=== PATIENT | male | born 1995 | race Two or more races ===

== ENCOUNTER 2023-04-03 02:05 | Emergency (ER) | payer OTHER ==
[~2023-04-03] VITALS: Ht 167.6 cm; Wt 70.0 kg
[2023-04-03] MEDS ORDERED: ALBUTEROL SULF 2.5 MG/0.5ML(0.5%) NEB SOLN NEB ONE (02:45)
[2023-04-03] MEDS ORDERED: DexAMETHasone INJECTION 10 MG in D5W 5% 50 ML IV ONE (02:45)
[2023-04-03] MEDS ORDERED: IPRATROPIUM BROM 0.5 MG/2.5ML INH SOL NEB ONE (02:45)
[2023-04-03 03:13] LABS: Hematocrit 44.4 % (41.0-53.0); Hemoglobin 14.9 g/dL (13.5-17.5); Mean Corpuscular Hemoglobin 29.5 pg (28.0-32.0); Mean Corpuscular Hgb Conc. 33.5 g/dL (32.0-36.0); Mean Corpuscular Volume 88.3 fL (80.0-100.0); Red Blood Cells 5.03 10^6/uL (4.5-5.90); Red Cell Distribution Width 13.2 % (11.8-14.3); White Blood Cell 9.1 10^3/uL (4.4-10.8)
[2023-04-03] MEDS ORDERED: DexAMETHasone SOD PHOS 10MG/1ML VIAL INJ ONE (03:15)
[2023-04-03 03:22] LABS: Alanine Aminotransferase 18 U/L (7-40); Albumin 4.6 g/dL (3.2-4.8); Alkaline Phosphatase 90 U/L (46-116); Anion Gap 5 (5-15); Aspartate Aminotransferase 48 U/L (13-40); BUN/Creatinine Ratio 11.2 (10.0-20.0); Bilirubin, Total 1.1 mg/dL (0.2-1.0); Blood Urea Nitrogen 10 mg/dL (9-23); Calcium 9.3 mg/dL (8.7-10.4); Carbon Dioxide 29 mmol/L (20-30); Chloride 105 mmol/L (98-107); Potassium 3.4 mmol/L (3.5-5.1); Sodium 139 mmol/L (136-145); Total Protein 7.4 g/dL (5.7-8.2)
[2023-04-03 03:30] LABS: Basophils % (manual) 0 (0.0-2.0); Blast Cells 0; Metamyelocytes % 0; Promyelocytes % 0; Reactive Lymphocytes 0
[2023-04-03 04:30] LABS: Glucose 84 mg/dL (74-106)
[2023-04-03] MEDS ORDERED: ALBU108A5 IN (05:25)
[2023-04-03] MEDS ORDERED: DEX4T PO (05:26)
[2023-04-03] MEDS ORDERED: AZIT-81 PO (05:27)
[2023-04-03 05:50] VITALS: BP 127/81; PULSE 88; RESP 13; TEMP 98.6; O2SAT 98
[2023-04-03 06:03] LABS: Band Neutrophils % (manual) 3; Eosinophils % (manual) 24 (0-7); Lymphocytes % (manual) 25 (10.0-50.0); Monocytes % (manual) 5 (0-12); Myelocytes % 1; Platelet Estimate Adequate; RBC Morphology Normal
== END 2023-04-03 05:59 | disposition home or self-care (01) ==
LOC: EDBD 02:05 → ER 02:05
DX: J98.01 Acute bronchospasm (principal)
CPT/HCPCS: 36415; 71046; 80053; 83605; 83880; 84484; 85007; 85027; 85379; 87040; 94640; 96374; 99284; J1100; J7060; J7644

== ENCOUNTER 2023-04-09 17:02 | Emergency (ER) | payer OTHER ==
[~2023-04-09] VITALS: Ht 162.6 cm; Wt 70.0 kg
[~2023-04-09 17:02] MED LIST: ALBU108A5 IN; AZIT-81 PO; DEX4T PO
[2023-04-09 18:53] LABS: Basophils # (auto) 0.1 10 ^3/uL (0-0.2); Nucleated Red Blood Cells % 0.1 %
[2023-04-09 18:56] LABS: Alanine Aminotransferase 42 U/L (7-40); Albumin 4.3 g/dL (3.2-4.8); Alkaline Phosphatase 85 U/L (46-116); Anion Gap 7 (5-15); Aspartate Aminotransferase 49 U/L (13-40); BUN/Creatinine Ratio 12.2 (10.0-20.0); Bilirubin, Total 0.8 mg/dL (0.2-1.0); Blood Urea Nitrogen 12 mg/dL (9-23); Carbon Dioxide 28 mmol/L (20-30); Chloride 108 mmol/L (98-107); Glucose 101 mg/dL (74-106); Potassium 3.9 mmol/L (3.5-5.1); Sodium 143 mmol/L (136-145); Total Protein 6.6 g/dL (5.7-8.2)
[2023-04-09 19:00] LABS: Basophils % (auto) 0.6 % (0.0-2.0); Eosinophils # (auto) 0.3 10 ^3/uL (0-0.8); Eosinophils % (auto) 2.8 % (0.0-7.0); Hematocrit 37.6 % (41.0-53.0); Hemoglobin 13.3 g/dL (13.5-17.5); Lymphocytes # (auto) 3.2 10 ^3/uL (0.4-5.4); Lymphocytes % (auto) 28.6 % (10.0-50.0); Mean Corpuscular Hemoglobin 30.8 pg (28.0-32.0); Mean Corpuscular Hgb Conc. 35.4 g/dL (32.0-36.0); Mean Corpuscular Volume 87.3 fL (80.0-100.0); Monocytes % (auto) 8.7 % (0.0-12.0); Neutrophils # (auto) 6.7 10 ^3/uL (1.6-8.6); Neutrophils % (auto) 59.3 % (37.0-80.0); Red Blood Cells 4.31 10^6/uL (4.5-5.90); White Blood Cell 11.2 10^3/uL (4.4-10.8)
[2023-04-09 19:06] VITALS: BP 133/78; PULSE 78; RESP 16; TEMP 98.1; O2SAT 96
== END 2023-04-09 19:59 | disposition home or self-care (01) ==
LOC: EDBD 17:02 → ER 17:02
DX: R41.82 Altered mental status, unspecified (principal); F11.10 Opioid abuse, uncomplicated; Z79.2 Long term (current) use of antibiotics; Z79.899 Other long term (current) drug therapy
CPT/HCPCS: 36415; 80053; 84484; 85025

== ENCOUNTER 2024-05-24 10:42 | Emergency (ER) | payer MEDICAID ==
[~2024-05-24] VITALS: Ht 170.2 cm; Wt 69.2 kg
[~2024-05-24 10:42] MED LIST changes: +AZIT-185 PO; -AZIT-81 PO; +PRED20TA2 PO
[2024-05-24 11:00] VITALS: BP 143/87; PULSE 95; RESP 16; O2SAT 97
[2024-05-24] MEDS ORDERED: BUPR8MIS SL (11:13)
[2024-05-24 12:13] LABS: Urine Bacteria None Seen /hpf (None Seen)
[2024-05-24] MEDS ORDERED: LORazepam 2MG/ML-1ML VIAL IV ONE (12:15)
[2024-05-24] MEDS ORDERED: ONDANSETRON HCL 4 MG/2 ML VIAL IV ONE (12:15)
[2024-05-24] MEDS ORDERED: SODIUM CHLORIDE 0.9% 1,000 ML IVB ONE (12:15)
[2024-05-24 12:20] LABS: Urine Clarity Clear (Clear); Urine Color Yellow (Yellow); Urine Specific Gravity 1.022 (1.001-1.035)
[2024-05-24 12:21] LABS: Urine Blood Negative /uL (Negative); Urine Mucus FEW (None Seen); Urine Protein, UAD Negative (Negative); Urine Urobilinogen Normal (Negative); Urine WBC <1 /hpf (0 - 3); Urine pH 6.5 (5.0-9.0)
[2024-05-24 12:30] LABS: Amphetamine Screen, Urine Neg (NEGATIVE); Barbiturate Scree,Urine Neg (NEGATIVE); Benzodiazephine Screen, Urine Neg (NEGATIVE); Cannabinoid Screen, Urine Pos (NEGATIVE); Cocaine Screen, Urine Neg (NEGATIVE); Opiate Scree,Urine Neg (NEGATIVE); Phencyclidine Screen, Urine Neg (NEGATIVE)
[2024-05-24] MEDS ORDERED: BUPR2MIS SL (12:37)
--- NOTE | 2024-05-24 12:45 | ED.PDOC ---
History of Present Illness HPI Comments 29 Y M, with PMHX of drug abuse presents to the ED with CC of withdrawal. Patient states that he has been experiencing withdrawal symptoms with associated bodyaches for x3 days since relapsing using Fentanyl. Patient relays that he ran out of his prescription medication Suboxone on 05/20, and had a follow up appointment this morning with his PCP but was instructed to go to the ED. Patient denies any SI, HI, N/V/D, fever, or cough. Chief Complaint: Withdrawal Time Seen by MD: 12:00 Primary Care Provider: NONE Reviewed Notes: Nurses Notes, Medications, Allergies Allergies: Coded Allergies: NO KNOWN ALLERGIES (Unverified , 04/03/23) Home Meds Active Scripts Buprenorphine Hcl-Naloxone Hcl (Suboxone) 1 Mis Mis, 3 STRIP SL DAILY for 7 Days, #21 STRIP Prov:GARFIELD ALFONSO MD 05/24/24 Prednisone (Prednisone) 20 Mg Tab, 40 MG PO DAILY@BREAKFAST for 5 Days, #10 MG Prov:PADMINI GRECO NP 09/13/23 Azithromycin (ZITHROMAX TABLET) 250 Mg Tb, 250 MG PO DAILY for 5 Days, #6 TAB 0 Refills Prov:KIN MARTINEZ MD 04/03/23 Dexamethasone (Decadron) 4 Mg Tb, 4 TAB PO DAILY, #8 TAB Prov:KIN MARTINEZ MD 04/03/23 Albuterol Sulfate (Albuterol Sulfate Hfa) 108 Mcg/Act Aer, 108 MCG IN Q4HPRN PRN for 10 Days, #1 AER 1 Refill Prov:KIN MARTINEZ MD 04/03/23 Information Source: Patient Mode of Arrival: Ambulatory Severity: Moderate Timing: Days Duration: Since onset Medication Refill: Ran out of Medication Past Medical History Surgical History: Denies all surgeries Family History Family History: Unknown Social History Smoker: Cigarettes Alcohol: Occasionally Drugs: Marijuana, Other Lives In: Unknown Constitutional: reports: others (BODYACHES) Physical Exam General Appearance: No Apparent Distress HEENT: Normal ENT Inspection, Pharynx Normal, TMs Normal Neck: Full Range of Motion, Non-Tender, Normal, Normal Inspection Respiratory: Chest Non-Tender, Lungs Clear, No Accessory Muscle Use, No Respiratory Distress, Normal Breath Sounds Cardiovascular: No Edema, No JVD, No Murmur, No Gallop, Normal Peripheral Pulses, Regular Rate/Rhythm Breast Exam: Deferred Gastrointestinal: No Organomegaly, Non Tender, No Pulsatile Mass, Normal Bowel Sounds, Soft Genitalia: Deferred Pelvic: Deferred Rectal: Deferred Extremities: No calf tenderness, Normal capillary refill, Normal inspection, Normal range of motion, Non-tender, No pedal edema Musculoskeletal : Location: Bilateral Extremity Location: Other (Body ache) Apperance: Normal Neurologic: Alert, vp care management II-XII nml as Tested, No Motor Deficits, Normal Affect, Normal Mood, No Sensory Deficits Cerebellar Function: Normal Reflexes: Normal Skin: Dry, Normal Color, Warm Peripheral Pulses: 1+ carotid (R), 1+ carotid (L) Lymphatic: No Adenopathy Was a procedure done? Was a procedure done?: No Differential Dx Considerations may include: WITHDRAWL on fentanyl patient ran out of Suboxone X-Ray, Labs, Meds, VS Vital Signs Date Time Temp Pulse Resp B/P (MAP) Pulse Ox O2 Delivery O2 Flow Rate FiO2 05/24/24 11:00 97.6 95 16 143/87 (105) 97 Lab Test 05/24/24 10:58 Range/Units Urine Color Yellow Yellow Urine Clarity Clear Clear Urine pH 6.5 5.0-9.0 Urine Specific [place] 1.022 1.001-1.035 Urine Protein Negative Negative Urine Ketones Negative Negative Urine Blood Negative Negative /uL Urine Nitrite Negative Negative Urine Bilirubin Negative Negative Urine Urobilinogen Normal Negative mg/dL Urine Leukocyte Esterase Negative Negative /uL Urine RBC 1 0 - 3 /hpf Urine WBC <1 0 - 3 /hpf Urine Squamous Epithelial Cells None seen <5 /hpf Urine Bacteria None seen None Seen /hpf Urine Mucus Few None Seen Urine Glucose Normal Normal mg/dL Urine Opiates Screen Neg NEGATIVE Urine Fentanyl Screen Pos NEGATIVE Urine Barbiturates Screen Neg NEGATIVE Urine Phencyclidine Screen Neg NEGATIVE Urine Amphetamines Screen Neg NEGATIVE Urine Benzodiazepines Screen Neg NEGATIVE Urine Cocaine Screen Neg NEGATIVE Urine Cannabinoids Screen Pos NEGATIVE X-Ray, Labs, Meds, VS Comment Course in the emergency department eventful patient is in no acute distress does complain mild body aches Patient is addicted to fentanyl and also uses cannabinoid Physical exam is normal We will be refilling the Suboxone for seven days until he sees his doctor for refills and follow up Time of 1ST Reevaluation: 12:30 Reevaluation 1ST: Unchanged Time of 2ND Reevaluation: 13:01 Reevaluation 2ND: Unchanged Consultation: PCP, Other (Detoxification) Patient Education/Counseling: Diagnosis, Treatment, Prognosis, Need For Follow Up Family Education/Counseling: Diagnosis, Treatment, Prognosis, Need For Follow Up, No Family Present Departure 1 Departure Time of Disposition: 13:02 Impression: Primary Impression: Fentanyl dependence Additional Impression: Marijuana user Disposition: 01 HOME / SELF CARE / HOMELESS Condition: Fair Additional Instructions: Push fluids. All drugs at this time start his Suboxone as needed and follow up with your PCP e-Prescriptions Buprenorphine Hcl-Naloxone Hcl (Suboxone) 1 Mis Mis 3 STRIP SL DAILY for 7 Days, #21 STRIP Prov: GARFIELD ALFONSO MD 05/24/24 Discharged With: Self Critical Care Note Critical Care Time?: No Stability Stability form required: No Heart Score Heart Score: Heart Score Response (Comments) Value History N/A 0 EKG N/A 0 Age <45 0 Risk Factors No known risk factors 0 Troponin N/A 0 Total 0 I personally scribed for GARFIELD ALFONSO MD ([email or web address]) on 05/24/24 at 12:45. Electronically submitted by Noe Sanford ([email or web address]). I personally scribed for GARFIELD ALFONSO MD ([email or web address]) on 05/24/24 at 12:57. Electronically submitted by Noe Sanford ([email or web address]). GARFIELD ALFONSO MD May 24, 2024 12:45
== END 2024-05-24 15:37 | disposition left against medical advice (07) ==
LOC: ER 10:42
DX: F19.20 Other psychoactive substance dependence, uncomplicated (principal); F12.10 Cannabis abuse, uncomplicated; F17.210 Nicotine dependence, cigarettes, uncomplicated; Z79.52 Long term (current) use of systemic steroids; Z79.2 Long term (current) use of antibiotics; Z79.899 Other long term (current) drug therapy
CPT/HCPCS: 80307; 81001